=== PATIENT | female | born 1970 | race Caucasian/White ===

== ENCOUNTER 2019-01-31 22:56 | Inpatient (IN) ==
[2019-02-01] MEDS ORDERED: ZOFRAN IV ONE (00:35)
[2019-02-01] MEDS ORDERED: DILAUDID IV ONE ×2 (00:35→03:56)
[2019-02-01] MEDS ORDERED: NS 1,000 ML IV ONE ×2 (00:35→04:25)
--- NOTE | 2019-02-01 00:51 | PROVIDER DOCUMENTATION ---
HPI-Abdominal Pain/GI Problem - General Chief Complaint: Abdominal Pain Stated Complaint: ABD PAIN Time Seen by Provider: 02/01/19 00:30 Allergies/Adverse Reactions: Patient Allergies Allergy/AdvReac Type Severity Reaction Status Date / Time No Known Allergies Allergy Verified 01/28/15 10:07 - History of Present Illness-ABD Nature of Presenting Problems: patient is a 48 year old white female complaining of crampy 10/10 lower abdomen pain with vomiting for past 5 hours. Just ate at [facility] at 6pm tonight. Abdominal Pain Onset Location: reports: other (lower abdomen pain) Review of Systems - Adult - REVIEW OF SYSTEMS - ADULT Constitutional: denies: chills, fever Eyes: reports: no symptoms reported Ears, Nose, Mouth & Throat: reports: no symptoms reported Cardiovascular: reports: no symptoms reported Respiratory: reports: no symptoms reported Gastrointestinal: reports: abdominal pain, nausea, vomiting Genitourinary: reports: no symptoms reported Musculoskeletal: reports: no symptoms reported Integumentary: reports: no symptoms reported Neurological: reports: no symptoms reported Psychiatric: reports: no symptoms reported, anxiety Endocrine: reports: no symptoms reported Hematologic/Lymphatic: reports: no symptoms reported Allergic/Immunologic: reports: no symptoms reported All Other Systems: Reviewed and Negative Past History - Adult - PAST MEDICAL HISTORY-ADULT Review of Records: reports: Old Records Reviewed, Nursing Assessment Review, Medications Reviewed, Social history reviewed & non-contributory. Major Childhood Illnesses: reports: denies history Cardiovascular: reports: denies history Respiratory: reports: denies history Gastrointestinal: reports: denies history Obstetrical/Gynecological: reports: denies history Genitourinary: reports: denies history - PRIOR SURGERIES/PROCEDURES Surgical/Procedure History: reports: hysterectomy, other (colon resection, due to bowel being nicked with hysterectomy) - IMMUNIZATION STATUS Childhood Immunizations: See Nurse Assessment Flu Vaccine: See Nurse Assessment Physical Exam-General - CONSTITUTIONAL General Appearance: alert, moderate distress, anxious - EYES Eyes: other (clear) - HEAD, EARS, NOSE, MOUTH & THROAT HENMT: moist mucous membranes - NECK Neck: full range of motion, supple - RESPIRATORY Respiratory: no respiratory distress, no accessory muscle use - CARDIOVASCULAR Cardiovascular: regular rate, rhythm, no edema - GASTROINTESTINAL (ABDOMEN) Abdominal Exam: soft. negative: guarding, rebound - LYMPHATIC Lymphatic: no adenopathy - MUSCULOSKELETAL Back Exam: normal inspection, no CVA tenderness Extremity: normal range of motion, non-tender Peripheral Pulses: radial (R): 2+, radial (L): 2+ - SKIN Integumentary: normal color, normal turgor, warm/dry - NEUROLOGIC Neurologic: grossly normal - PSYCHIATRIC Psych/Mental Status: anxious Progress - PLAN OF CARE/RESULTS Progress/Plan/Lab Results: Vital Signs - 8 hr 01/31/19 23:47 Temperature 98.2 F Pulse Rate 65 Respiratory Rate 18 Blood Pressure 127/80 O2 Sat by Pulse Oximetry 98 Orders Category Date Time Status Saline Loc DIRECTED Care 02/01/19 00:36 Active NPO Diet 02/01/19 00:[address] ABD/PELVIS W/IV CONT ONLY [CT] Stat Exams 02/01/19 00:36 Ordered CBC WITH ELECTRONIC DIFF [HEME] Stat Lab 02/01/19 00:36 Ordered COMPREHENSIVE METABOLIC PANEL [CHEM] Stat Lab 02/01/19 00:36 Uncollected LIPASE [CHEM] Stat Lab 02/01/19 00:[address] W/POSS RFLX CULT [URINALYSIS] Stat Lab 02/01/19 00:36 Unco llected 0.9% Sodium Chloride Inj [Ns] 1,000 ml Med 02/01/19 00:35 Active IV 999 mls/hr Hydromorphone [Dilaudid] Med 02/01/19 00:35 Discontinued 1 mg IV NOW ONE Ondansetron [Zofran] Med 02/01/19 00:35 Discontinued 4 mg IV NOW ONE Result Diagrams: 02/01/19 01:38 02/01/19 01:38 - CT/MRI 1 CT Study: Abdomen, Pelvis CT Results: finding c/w highgrade small bowel obstruction - CONSULTS/PCP/HOSPITALIST Notification #1 *Consult/PCP/Hospitalist*: Dr. Matos Time Discussed: 04:10 Reason/Comments: request transfer to [facility],admit to hospitalist Consult Disposition: Admit #2 Consult: Dr. Vo, [facility] hospitalist Consult Disposition: Admit Departure - Departure Date of Disposition Decision: 02/01/19 Time of Disposition Decision: 04:12 DIAGNOSIS: Small bowel obstruction Disposition: ADMITTED INPATIENT 09 Certified Medical Emergency: Emergent Condition: Stable Referrals and Follow-Ups: Russel Renner MD [Primary Care Provider] - - Critical Care Note This patient required my direct & personal management of CC.: No Attestation - Physician/ MIAH Attestation Patient care was provided by Advanced Practice Provider:: No The physician spent face to face time with patient:: Yes Advanced Practice Provider documentation review:: Supervising physician onsite and consulted in the evaluation and care of this patient. The physician did have a face to face encounter with the patient.
[2019-02-01 02:00] LABS: BASO# 0.02 X1000 (0.0-0.2); BASO% 0.2 % (0.0-0.8); EOS# 0.04 X1000 (0.0-0.7); EOS% 0.3 % (0.0-10.0); HEMATOCRIT 38.7 % (37.0-47.0); HEMOGLOBIN 13.1 g/dL (12.0-16.0); IMM GRAN# 0.02 X1000 (0.0-0.04); IMM GRAN% 0.2 % (0.0-0.5); LYMPH# 1.09 X1000 (1.2-3.4); LYMPH% 8.4 % (20.5-51.1); MCH 29.2 PG (27-31); MCHC 33.9 g/dL (33-37); MCV 86.2 FL (81-99); MONO# 0.73 X1000 (0.11-0.59); MONO% 5.6 % (1.7-9.3); MPV 10.2 FL (7.4-10.4); NEUT# 11.07 X1000 (1.4-6.5); NEUT% 85.3 % (42.2-75.2); PLT 217 X1000 (130-400); RBC 4.49 XMIL (4.2-5.4); RDW 12.8 % (11.5-14.5); WBC 12.97 X1000 (4.8-10.8)
[2019-02-01 02:02] LABS: AGAP 9; ALBUMIN 4.4 g/dL (3.5-5.0); ALKALINE PHOSPHATASE 74 U/L (32-104); BUN 9 mg/dL (8-22); CALCIUM 8.9 mg/dL (8.8-10.2); CHLORIDE 104 mmol/L (98-107); COSMO 281; CREATININE 0.7 mg/dL (0.5-0.9); ESTIMATED GFR > 60; GLUCOSE 126 mg/dL (70-104); GOT 15 U/L (10-30); GPT 16 U/L (10-36); LIPASE 13 U/L (13-60); POTASSIUM 4.1 mmol/L (3.5-5.1); SODIUM 141 mmol/L (136-145); TCO2 28 mmol/L (25-35); TOTAL PROTEIN 6.6 g/dL (6.3-8.3)
[2019-02-01] MEDS ORDERED: ZOFRAN IV PRN (04:25)
--- NOTE | 2019-02-01 05:54 | GENERAL SURGERY CONSULTATION ---
DATE: 02/01/2019 REQUESTING PHYSICIAN: Dr. eBe in the Emergency Department. REASON FOR CONSULTATION: Bowel obstruction. HISTORY OF PRESENT ILLNESS: A 48-year-old female complaining of cramping, 10/10 lower abdominal pain with vomiting for the last 5 hours after she ate at [facility]. She has never had pain like this before. It should be noted that she has had a colon resection secondary to enterotomy noted at hysterectomy. [place] [address] Gomez. She is currently feeling better. She last had her last bowel movement last night and last passage of flatus last night. Describes the pain as sharp and in the lower quadrants but, again, is improved. PAST MEDICAL HISTORY: Hyperlipidemia, hypertension, endometriosis. PAST SURGICAL HISTORY: Hysterectomy. Colon resection. SOCIAL HISTORY: Occasional alcohol use. FAMILY HISTORY: Reviewed with patient, noncontributory. HOME MEDICATIONS: None. ALLERGIES: None. REVIEW OF SYSTEMS: A full 10 point review of systems was obtained and negative except as specified in the HPI. PHYSICAL EXAMINATION: Vital Signs: The patient is currently afebrile. Her vital signs are stable. General: No acute distress. Resting comfortably. female, looks stated age. HEENT: Normocephalic, atraumatic. Pupils equal, round, and reactive to light. Mucous membranes moist. Oropharynx benign. Neck: Supple. Trachea midline. Cardiovascular: Regular rate and rhythm. Lungs: Grossly clear. Abdomen: Soft. No real peritoneal signs at this time. Extremities: Moves all extremities. Neurologic: Grossly intact. Skin: No signs of jaundice. Vascular: All extremities perfused. LABORATORY: White blood cell count 12. Remainder of labs reviewed and essentially within normal limits. CT scan independently reviewed and preliminary report reviewed. It looks like she has maybe a stricture down in her anastomosis from her previous surgery. ASSESSMENT AND PLAN: A 48-year-old female with small-bowel obstruction. Small-bowel obstruction: At this time, given the fact there might be a stricture we will try to get a small-bowel series on her. We will keep her NPO. If there is a stricture she probably needs some degree of a revision, because I think this is going to be a chronic problem. The other etiology could be something like Crohn's, although she has had no history of it herself, or some kind of viral enteritis. At this point, I would recommend supportive treatment, pain management and the small-bowel series. She is to be admitted to the hospital. cc: Humphrey Matos MD
[2019-02-01] MEDS: MORPHINE IV PRN ×2 (06:36→11:54)
[2019-02-01 07:46] LABS: BILIRUBIN URINE NEGATIVE (NEGATIVE); BLOOD URINE NEGATIVE (NEGATIVE); CLARITY CLEAR (CLEAR); COLOR YELLOW; GLUCOSE URINE NEGATIVE (NEGATIVE); KETONE URINE TRACE mg/dL (NEGATIVE); LEUKOCYTES URINE 1+ (NEGATIVE); NITRITE URINE NEGATIVE (NEGATIVE); PROTEIN URINE TRACE mg/dL (NEGATIVE); SP GRAVITY URINE 1.005; UROBILINOGEN URINE NORMAL
[2019-02-01 07:48] LABS: URINE EPITHELIAL CELLS <10 /HPF (<10); URINE RBC <10 /HPF (<10); URINE SOURCE CLEAN CATCH
--- NOTE | 2019-02-01 09:06 | Diag Imaging Result Doc PS360 ---
EXAM: CT ABD/PELVIS W/IV CONT ONLY HISTORY: abdominal pain TECHNIQUE: Routine with IV contrast. COMPARISON: None. FINDINGS: Preliminary interpretation was given by [facility]. There are dilated small bowel loops to 3.6 cm with a well-defined transition zone at a surgical anastomosis with clips within the right lower quadrant. There is equalization of the small bowel and surrounding soft tissue stranding. No pneumatosis is appreciated. No focal areas of hypoenhancement are identified. Distal ileum is decompressed. Findings are consistent with high-grade small bowel obstruction. There is mild constipation. There is no free fluid or free air. The uterus is surgically absent. The liver, spleen, pancreas, kidneys, and adrenal glands appear normal. There are no calcified gallstones. Abdominal aorta is of normal caliber. There are no calcified gallstones. IMPRESSION: 1.High-grade small bowel obstruction at the surgical anastomosis within the right lower quadrant. 2.No pneumatosis, free air or focal hypoenhancement. This exam was performed using automated exposure control, adjustment of mA or kV according to patient size, and/or use of iterative reconstruction technique. Electronically signed by Alba Kang 02/01/2019 9:03 AM
[2019-02-01] MEDS ORDERED: ZOSYN 3.375 GM in NS 50 ML IV ONE (10:07)
--- NOTE | 2019-02-01 12:07 | HISTORY AND PHYSICAL ---
HISTORY OF PRESENT ILLNESS: A 48-year-old female who presented to the emergency room last night 02/02 with abdominal pain. Pain started at approximately 3 p.m. yesterday in the epigastrium and spread bilaterally to each side associated with a nausea feeling and subsequently had 1 episode of vomiting, no diarrhea. There was no blood or black stools. No history of liver or gallbladder disease. She has not had a bowel movement nor she has passed significant amount of gas since then. In the ER, CT revealed that she had a possible bowel obstruction. Historically, she has had a hysterectomy and it was compounded by a jayde in her bowel and subsequent colon surgery removing 11 inches of her colon. It has not given her any significant problems until this day. ALLERGIES: She has no known allergies. MEDICATIONS: She takes Tylenol 3 p.r.n. for chronic pain, Lipitor for dyslipidemia. 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 She is a nonsmoker and nondrinker. PAST MEDICAL HISTORY: Surgically, she has had the mentioned surgery and basically that is it. REVIEW OF SYSTEMS: Head: No seizure, migraines, stroke issues. Neck: No thyroid, goiter, or tracheal problems. Eyes: PERRL. EOMs intact. Oropharynx: No issues with pharyngitis, otitis, or sinusitis. Pulmonary: No significant cough, wheeze, phlegm production. No history of TB. : No dysuria, hematuria, polyuria. Has urinated somewhat less than usual. GI: See present illness. Endocrine: No diabetes, thyroid, or hormone therapy. Skin: No lesions, rashes. Joints: No swelling or deformity of any joints. VITAL SIGNS: At the time of admission, her vital signs on arrival at 2347 last night: Afebrile, pulse was 65, respiratory rate 18, BP 127/80, O2 saturation was 98% on room air. Procedures were done x-raying her abdomen. She had a CT abdomen and pelvis with IV contrast only. There are dilated small bowel loops to 3.6 cm with a well-defined transition zone at an surgical anastomosis with clips within the right lower quadrant. There is equalization of the small bowel and soft tissues surrounding. No pneumatosis is appreciated. No focal areas of hypoenhancement. Distal ileum was decompressed. Findings are consistent with a high-grade small bowel obstruction. Mild constipation. No free air. Absent uterus. Liver, spleen, pancreas, kidneys, and adrenal glands are normal. There are no calcified gallstones. Abdominal aorta is normal. There are no calcified gallstones. LABORATORY DATA: White count was 12,970, hematocrit was 38.7, platelet count was 217. Chemistry: Her electrolytes were normal with BUN 9, creatinine 0.7, GFR greater than 60, BUN and creatinine ratio 13, glucose 126, total bilirubin 0.4. LFTs and lipase were normal. Urinalysis specific gravity, 10-20 WBCs, 1+ white cells. PHYSICAL EXAMINATION: HEENT: Head was normocephalic. Eyes were PERRL. EOMs intact. SC clear. Fundi benign. Nares patent. Oropharynx negative. Moist mucous membranes. NECK: Supple. Full range of motion. Midline trachea. RESPIRATORY: No respiratory distress or accessory muscle usage. CARDIOVASCULAR: Regular rhythm and rate. No murmurs, gallops, clicks, or rubs. No edema. ABDOMEN: Soft. Slight distention. MUSCULOSKELETAL: Negative. SKIN: Clear. NEUROLOGIC: Exam was symmetrical. ADMITTING DIAGNOSIS: Small bowel obstruction. She was consulted with Dr. Matos and we are going to admit her here to [facility] and follow her, administer fluids, and some Zosyn pending his seeing her later on this afternoon. cc: Russel Renner MD MTDD
--- NOTE | 2019-02-02 05:44 | GENERAL SURGERY PROGRESS NOTE ---
DATE: 02/02/2019 SUBJECTIVE: Patient doing okay. She has passed a little bit of gas. She is feeling better. OBJECTIVE: Vital Signs: Patient is currently afebrile. Her vital signs have been stable. General: No acute distress. Resting comfortably. HEENT: Normocephalic, atraumatic. Pupils equal, round, reactive to light. Mucous membranes moist. Oropharynx benign. Neck: Supple. Trachea midline. Cardiovascular: Regular rate and rhythm. Lungs: Grossly clear. Abdomen: Soft, less tender, less distended. Extremities: Moves all extremities. Neurologic: Grossly intact. Skin: No signs of jaundice. Vascular: All extremities perfused. LABORATORY: None this morning. ASSESSMENT AND PLAN: A 48-year-old female with bowel obstruction. Bowel obstruction. At this time with a small-bowel series to evaluate her further and see if there actually is a stricture. Overall, I think she is improving. If she seems to continue to improve and there does not seem to be a stricture or any kind of small-bowel obstruction, agree with advancing her diet. cc: MD Russel Fofana MD
--- NOTE | 2019-02-02 09:53 | PROGRESS NOTE ---
DATE: 02/02/2019 This is a 48-year-old female who presented with partial small bowel obstruction attributed to previous surgeries. She is not vomiting. Belly is soft. Somewhat tender in the left lower quadrant where the previous surgery anastomosis had occurred. She is passing gas. No bowel movement. No vomiting. Vital signs are stable. She is going to have a barium study here to further evaluate her stricture, and we will go from there. cc: Russel Renner MD
--- NOTE | 2019-02-02 12:06 | Diag Imaging Result Doc PS360 ---
EXAM: SMALL BOWEL SERIES ONLY 02/02/2019 HISTORY: bowel obstruction possible stricture TECHNIQUE: Small bowel series COMMENT: There is no evidence of mucosal fold thickening in the proximal small bowel. There is some slight dilatation of some of the proximal ileum or distal jejunal loops in the right lower quadrant. This has improved markedly since the previous CT examination of 02/01/2019. There is no evidence of the fecalized contents seen proximal to the anastomosis demonstrated on the CT scan on image 82. There is barium present in the ascending colon by 2.5 hours. IMPRESSION: No evidence of obstruction at this time. The previously demonstrated obstruction on 02/01/2019 was probably on the basis of a relative anastomotic stricture with phytobezoar proximally. Electronically signed by Dioni Singh 02/02/2019 12:04 PM
[2019-02-03 08:30] VITALS: BP 131/74
[2019-02-03 10:26] LABS: BASO# 0.01 X1000 (0.0-0.2); BASO% 0.1 % (0.0-0.8); EOS# 0.07 X1000 (0.0-0.7); EOS% 0.9 % (0.0-10.0); HEMATOCRIT 38.6 % (37.0-47.0); HEMOGLOBIN 13.3 g/dL (12.0-16.0); IMM GRAN# 0.02 X1000 (0.0-0.04); IMM GRAN% 0.3 % (0.0-0.5); LYMPH# 1.24 X1000 (1.2-3.4); MCH 29.4 PG (27-31); MCHC 34.5 g/dL (33-37); MCV 85.2 FL (81-99); MONO# 0.54 X1000 (0.11-0.59); MPV 10.1 FL (7.4-10.4); NEUT# 5.86 X1000 (1.4-6.5); NEUT% 75.7 % (42.2-75.2); PLT 220 X1000 (130-400); RBC 4.53 XMIL (4.2-5.4); RDW 12.7 % (11.5-14.5); WBC 7.74 X1000 (4.8-10.8)
--- NOTE | 2019-02-03 11:04 | GENERAL SURGERY PROGRESS NOTE ---
DATE: 02/03/2019 Ms. Martell is doing better today. After her small-bowel follow-through yesterday, she did seemingly resolve her bowel obstruction. Her bowels had moved. She has passed flatus. PLAN: I agree with advancing her diet and allowing her to go home if she tolerates solid food. cc: MD Russel Haley MD
--- NOTE | 2019-02-28 11:00 | DISCHARGE SUMMARY ---
ADMISSION DATE: 01/31/2019 DISCHARGE DATE: 02/03/2019 She presented to the emergency room complaining of a crampy 10/10 abdominal pain and vomiting for the past 5 hours. She had just eaten at [facility] earlier at 6 p.m. in the evening. Her belly pain was localized in the lower abdomen. In the ER, she reported that she had been having nausea, vomiting, and belly pain. She is status post hysterectomy and a partial colon resection after her bowel was nicked during a hysterectomy. In the ER, she had a temperature of 98.2, pulse was 65, respiratory rate was 18, BP 127/80, O2 saturation was 98. She presented to the ER, where she was given 1 L of saline, 1 mg of Dilaudid, and 4 mg of Zofran. She had a CT abdomen, showed a high-grade small bowel obstruction. She was admitted in [facility] [place] and was not actually a patient of mine in the ER nor over at [facility] [place], so she was [facility] to Dr. Matos and was admitted to Dr. Rodríguez, so this is not 1 of my history and physicals. cc: Russel Renner MD
== END 2019-02-03 15:45 | disposition home or self-care (01) | DRG 390 ==
LOC: P.ED 22:56 → P.EDIPHOLD 22:57 → SUATTDRO 22:57 → P.MEDSURG 02-01 11:01
PROVIDERS: ADMIT Internal Medicine; ATTEND Internal Medicine
CPT/HCPCS: 36415; 74177; 74250; 80053; 81001; 83690; 85025; 96361; 96365; 96375; 96376; 99285; J1170; J2270; J2405; J2543; J7030; Q9967